=== PATIENT | female | born 1965 | race Caucasian/White ===

== ENCOUNTER 2024-01-28 10:36 | Inpatient (IN) | payer MEDICARE, SELFPAY ==
[2024-01-28] VITALS (10 sets, daily range): BP systolic 96–210; BP diastolic 57–136; PULSE 70–96; RESP 16–18; TEMP 33.3–37; O2SAT 91–98; BMI 20.2
--- NOTE | 2024-01-28 11:11 | XRR_ITS ---
PROCEDURE INFORMATION: Exam: XR Abdomen Exam date and time: 01/28/2024 11:51 AM Age: 58 years old Clinical indication: Constipation; Abdominal pain; Periumbilical; Additional info: Periumbilical pain, constipation TECHNIQUE: Imaging protocol: Radiologic exam of the abdomen. Views: Frontal supine view of the abdomen. 1 View. COMPARISON: CR XR chest 1V [id number] 10/15/2018 12:44 AM FINDINGS: Gastrointestinal tract: There are multiple loops of mildly distended small bowel in the mid abdomen. A large amount of stool is noted throughout the colon but the colon is not distended. No free air. Bones/joints: Unremarkable. XR/XR abdomen 1V* [id number] IMPRESSION: 1. Small bowel distension of uncertain etiology. You may wish to obtain a CT for further evaluation. 2. Constipation
--- NOTE | 2024-01-28 11:30 | W.ED.ABDPA2 ---
HPI - Abdominal Pain General: Chief Complaint: Abdominal Pain Stated Complaint: abd pain, N/V Time Seen by Provider: 01/28/24 11:10 History of Present Illness: Presents to the ER with complaints of abdominal pain. This morning patient says she has not had a bowel movement a couple weeks and started vomiting this morning. Patient says she the pain rates a 9 out of 10 and is primarily periumbilical to the right lower quadrant. Patient says she had problems with constipation her whole life. Patient denies any urinary symptoms. No fever or chills. Patient says she has had an appendectomy and a cholecystectomy. Review of Systems General: Reports: 10 or more systems reviewed and unremarkable except in HPI and below Physical Exam Const: COMMON NORMALS: no acute distress, average body habitus, patient oriented x3, no limitations, healthy appearing, alert and well nourished HENMT: COMMON NORMALS: normocephalic, atraumatic, hearing grossly normal bilaterally, external ears normal, Normal external nose present, moist oral mucous membranes and oropharynx normal HEAD & SCALP: normocephalic and atraumatic NOSE: Normal external nose present EXTERNAL EAR: Yes external ears normal Neck/C-Spine: COMMON NORMALS: no JVD Resp: COMMON NORMALS: normal respiratory effort, No retractions, No use of accessory muscles and clear to auscultation bilaterally AUSCULTATION: clear to auscultation bilaterally Cardio: COMMON NORMALS: no JVD, regular rate, regular rhythm, S1 normal heart sound present, S2 normal heart sound present, No gallops present (Cardio), No clicks present (Cardio), No murmurs present (Cardio) and No rub (Cardio) RATE: regular rate RHYTHM: regular rhythm HEART SOUNDS: S1 normal heart sound present and S2 normal heart sound present GI: COMMON NORMALS: Normal to inspection, nondistended, normoactive bowel sounds present, Soft to palpation, No hepatosplenomegaly present, no masses and no bruits; negative for non-tender (Tender to palpate periumbilical/right lower quadrant) PALPATION: Yes Soft to palpation and Yes No hepatosplenomegaly present Neuro: COMMON NORMALS: patient oriented x3 SENSORIUM/ORIENTATION: Yes alert Course Vital Signs: Vital signs: Vital Signs Temperature 92 F L 01/28/24 10:40 Pulse Rate 84 01/28/24 15:00 Respiratory Rate 16 01/28/24 15:00 Blood Pressure 159/101 01/28/24 15:00 Pulse Oximetry 98 01/28/24 15:00 Oxygen Delivery Me thod Nasal Cannula 01/28/24 15:00 Oxygen Flow Rate 2.5 01/28/24 15:00 MDM - Abdominal Pain Medical Decision Making CT of the abdomen was obtained which showed high-grade small bowel obstruction with transition point in right lower quadrant, Dr. Acosta was consulted who agreed to consult the patient inpatient, he wanted nasogastric tube, normal saline at 150 cc an hour and official consult,. Dr Tracy was consulted who agreed to place the patient inpatient for further evaluation and treatment. Differential Diagnosis Likely abdominal pain and constipation; Unlikely acute appendicitis, calculus of kidney, diverticulitis, endometriosis, gastroenteritis, pancreatitis or small bowel obstruction Medical Records I reviewed the patient's medical records. Lab Data I reviewed the patient's lab results. 01/28/24 12:20 01/28/24 12:20 Labs/Radiology: Radiology Impressions Abdomen X-Ray 01/28/24 11:11 IMPRESSION: 1. Small bowel distension of uncertain etiology. You may wish to obtain a CT for further evaluation. 2. Constipation Laboratory Results WBC 11.64 10^3/uL (3.29-11.43) H 01/28/24 12:20 RBC 5.04 10^6/uL (3.85-5.65) 01/28/24 12:20 Hgb 14.50 g/dL (11.27-16.99) 01/28/24 12:20 Hct 44.9 % (36-47) 01/28/24 12:20 MCV 89.1 fl (85-98) 01/28/24 12:20 MCH 28.8 pg (27-33) 01/28/24 12:20 MCHC 32.3 g/dL (30-55) 01/28/24 12:20 RDW 12.3 % (12.1-15.1) 01/28/24 12:20 Plt Count 201 10^3/cmm (157-399) 01/28/24 12:20 MPV 12.0 fL (7.4-10.4) H 01/28/24 12:20 Neut % (Auto) 88.7 % 01/28/24 12:20 Lymph % (Auto) 7.9 % 01/28/24 12:20 [place] % (Auto) 2.6 % 01/28/24 12:20 Eos % (Auto) 0.3 % 01/28/24 12:20 Baso % (Auto) 0.2 % 01/28/24 12:20 Neut # (Auto) 10.32 10^3/uL (1.8-7.7) H 01/28/24 12:20 Lymph # (Auto) 0.9 10^3/uL (0.8-4.8) 01/28/24 12:20 [place] # (Auto) 0.3 10^3/uL (0.2-0.9) 01/28/24 12:20 Eos # (Auto) 0.0 10^3/uL (0.0-0.8) 01/28/24 12:20 Baso # (Auto) 0.0 10^3/uL (0.0-0.1) 01/28/24 12:20 Nucleated RBC % (auto) 0 % 01/28/24 12:20 Nucleated RBCs # 0.0 /100WBC 01/28/24 12:20 Sodium 137 mmol/L (136-145) 01/28/24 12:20 Potassium 3.8 mmol/L (3.5-5.1) 01/28/24 12:20 Chloride 94 mmol/L (98-107) L 01/28/24 12:20 Carbon Dioxide 32 mmol/L (22-29) H 01/28/24 12:20 Anion Gap 14.8 (5-19) 01/28/24 12:20 BUN 9 mg/dL (6-20) 01/28/24 12:20 Creatinine 0.8 mg/dL (0.5-0.9) 01/28/24 12:20 GFR Calculation 73.7 mL/min (90-130) L 01/28/24 12:20 Glucose 140 mg/dL (65-115) H 01/28/24 12:20 Calculated Osmolality 285 mOsm/kg (285-295) 01/28/24 12:20 Calcium 9.4 mg/dL (8.5-10.5) 01/28/24 12:20 Total Bilirubin 0.4 mg/dL (0.15-1.2) 01/28/24 12:20 AST 82 U/L (0-32) H 01/28/24 12:20 ALT 57 U/L (0-33) H 01/28/24 12:20 Alkaline Phosphatase 181 U/L (35-105) H 01/28/24 12:20 Total Protein 7.5 g/dL (6.6-8.7) 01/28/24 12:20 Albumin 4.3 g/dL (3.5-5.2) 01/28/24 12:20 Globulin 3.2 g/dL (1.3-4.6) 01/28/24 12:20 Lipase 15 U/L (13-60) 01/28/24 12:20 Urine Color Yellow (Yellow) 01/28/24 11:50 Urine Appearance Clear (CLEAR) 01/28/24 11:50 Urine pH 8 (5-7) H 01/28/24 11:50 Ur Specific [place] 1.015 (1.005-1.030) 01/28/24 11:50 Urine Protein 2+ (Negative) H 01/28/24 11:50 Urine Glucose (UA) Norm (Normal) 01/28/24 11:50 Urine Ketones Negative (Negative) 01/28/24 11:50 Urine Blood Neg (Negative) 01/28/24 11:50 Urine Nitrate Negative (Negative) 01/28/24 11:50 Urine Bilirubin Neg (Negative) 01/28/24 11:50 Prot Sulfosalicylic Acd Positive (Negative) 01/28/24 11:50 Urine Urobilinogen Norm mg/dL (Negative) 01/28/24 11:50 Ur Leukocyte Esterase Negative (Negative) 01/28/24 11:50 Urine RBC 0-4 /hpf (0-2) H 01/28/24 11:50 Urine WBC 0-4 /hpf (0-5) H 01/28/24 11:50 Ur Squamous Epith Cells 0-4 /hpf (0-5) H 01/28/24 11:50 Amorphous Sediment Not Reportable 01/28/24 11:50 Urine Bacteria Trace /hpf (NONE) 01/28/24 11:50 All radiology interpretation(s) finalized by discharge Discharge Plan Discharge Patient Disposition: Admitted As Inpatient Clinical Impression: Small bowel obstruction Condition: Stable Coding Level of Care Code ED Silk Conditioner for [facility]
[2024-01-28] MEDS: ketorolac 60 mg/2 mL INJ IM (12:00)
[2024-01-28] MEDS: ondansetron 2 mg/ML SDV 2 mL 4 MG IM (12:00)
[2024-01-28 12:15] LABS: Specific Gravity, Urine 1.015 (1.005-1.030); Urine Appearance Clear (CLEAR); Urine Color Yellow (Yellow); pH Urine 8 (5-7)
[2024-01-28 12:16] LABS: Add Urine Microscopic? YES; Bilirubin Urine Neg (Negative); Blood Urine Neg (Negative); Glucose Urine UA Norm (Normal); Ketones Urine Negative (Negative); Leukocyte Esterase Urine Negative (Negative); Nitrate Urine Negative (Negative); Protein Urine 2+ (Negative); Sulfosalicylic Acid Urine Positive (Negative); Urobilinogen Urine Norm (Negative)
--- NOTE | 2024-01-28 12:19 | CT_ITS ---
WS: [id number] CT ABDOMEN AND PELVIS WITH CONTRAST HISTORY: abd pain constipation abnormal xr TECHNIQUE: Imaging performed of the abdomen and pelvis with IV contrast. Single phase imaging of the abdomen. Coronal and sagittal reformats are submitted. All CT scans at [facility] use at [address] one of these dose optimization techniques: automated exposure control; mA and/or kV adjustment per patient size (includes targeted exams where dose is matched to clinical indication); or iterative re construction. IV CONTRAST: Omnipaque 350; 100 mL IV. Oral contrast: No DLP: 404.77 mGy.cm COMPARISON: None available. Lower thorax: Benign granuloma RIGHT lung base. Heart is normal size. No hiatal hernia. Liver/biliary system: Normal size with no intrahepatic dilatation. Gallbladder: Status post cholecystectomy. Pancreas: Diffuse pancreatic atrophy. Spleen: Normal size spleen. No mass or infarct. Adrenal glands: Normal. Right kidney: Normal. Left kidney: Normal. Aorta: Normal. Lymphadenopathy: None. Free fluid: Free fluid in the pelvis. GI tract: Stomach is markedly distended with fluid and air. High-grade small bowel obstruction with l oops measuring greater than 3 cm in diameter. There is a changing caliber in the RIGHT pelvis with mi ld luminal narrowing. Colon remains moderately distended with fecal material. Abdominal wall: Unremarkable abdominal wall. No hernia. Pelvis: Free fluid. Slightly greater into the RIGHT adnexa. Bones: Degenerative disc disease in the lumbar spine. IMPRESSION: 1. High-grade small bowel obstruction. Transition point is probably in the RIGHT lower quadrant. Sto mach is also distended with fluid. 2. Free fluid in the pelvis greatest into the RIGHT adnexa. 3. Prior appendectomy. 4. Extensive atherosclerotic plaque within the aorta and iliac arteries, more than expected for a pa tient of this age. 5. Prior cholecystectomy.
[2024-01-28] MEDS: cloNIDine 0.1 mg Tablet 0.200000000000000011 MG PO (12:24)
[2024-01-28 12:36] LABS: Basophils % 0.2 %; Eosinophils % 0.3 %; Hematocrit 44.9 % (36-47); Lymphocytes # 0.9 10^3/uL (0.8-4.8); Lymphocytes % 7.9 %; Mean Corpuscular HGB Conc 32.3 g/dL (30-55); Mean Corpuscular Hemoglobin 28.8 pg (27-33); Mean Corpuscular Volume 89.1 fl (85-98); Monocytes # 0.3 10^3/uL (0.2-0.9); Monocytes % 2.6 %; Neutrophils # 10.32 10^3/uL (1.8-7.7); Neutrophils % 88.7 %; Nucleated Red Blood Cells % 0 %; Platelet Count 201 10^3/cmm (157-399); Red Blood Count 5.04 10^6/uL (3.85-5.65); Red Cell Distribution Width 12.3 % (12.1-15.1); White Blood Count 11.64 10^3/uL (3.29-11.43)
[2024-01-28] MEDS: iohexol 350 mg/mL 500 mL Btl (per mL) IV (12:40)
[2024-01-28 12:41] LABS: Add Urine Culture? No; Bacteria Urine TRACE /hpf; RBC Urine 0-4 /hpf (0-2); Squamous Epithelial Cell Urine 0-4 /hpf (0-5); WBC Urine 0-4 /hpf (0-5)
[2024-01-28 13:00] LABS: Alanine Aminotransferase 57 U/L (0-33); Albumin Level 4.3 g/dL (3.5-5.2); Alkaline Phosphatase 181 U/L (35-105); Anion Gap 14.8 (5-19); Aspartate Amino Transferase 82 U/L (0-32); Blood Urea Nitrogen 9 mg/dL (6-20); Calcium 9.4 mg/dL (8.5-10.5); Carbon Dioxide 32 mmol/L (22-29); Chloride 94 mmol/L (98-107); Globulin 3.2 g/dL (1.3-4.6); Glomerular Filtration Rate 73.7 mL/min (90-130); Glucose 140 mg/dL (65-115); Lipase 15 U/L (13-60); Osmolality Calculated 285 mOsm/kg (285-295); Potassium 3.8 mmol/L (3.5-5.1); Sodium 137 mmol/L (136-145); Total Bilirubin 0.4 mg/dL (0.15-1.2); Total Protein 7.5 g/dL (6.6-8.7)
[2024-01-28 15:52] LABS: Lactic Sepsis W/Reflex 1.2 mmol/L (0.5-2.2)
--- NOTE | 2024-01-28 16:36 | P.HP_ITS ---
Providers/Chief Complaint 2 Chief Complaint: abd pain, N/V History of Present Illness 58-year-old lady with history of recurrent/chronic constipation, history of appendectomy, additionally chronic neck pain for which she is on opioid, has not had a bowel movement in several weeks, although she does have recurrent constipation, has been taking senna at home which had worked for her in the past. However, she started having nausea and vomiting, unable to keep down any oral intake or her medications today, as well as abdominal pain 07/27. Received pain medication in ER, CT abdomen pelvis with high-grade small bowel obstruction transition point probably in the right lower quadrant. Surgery was contacted in ER and requested placement of NG tube for decompression. Review of Systems 2 Const: Denies: fever(s), chills, body aches or malaise ENMT: Denies: throat pain Card: Denies: chest pain, edema, pre-syncope or dyspnea on exertion Resp: Denies: dyspnea, productive cough, change in phlegm color or hemoptysis GI: Reports: abdominal pain, nausea and vomiting; Denies: diarrhea, constipation, hematochezia or melena : Denies: flank pain, urinary frequency or hematuria Musc: Denies: back pain, joint swelling or joint redness Skin/Breast: Denies: rash or new lesions Neuro: Denies: headache(s), dizziness or confusion Medications/Allergies Home Medications Medication Instructions Recorded Confirmed Last Taken Type albuterol sulfate 90 mcg/actuation 2 puff inhalation QID PRN 01/28/24 01/28/24 Unknown History aerosol inhaler Shortness Of Breath Or Wheezing aspirin 81 mg tablet,delayed 81 mg PO DAILY 01/28/24 01/28/24 01/27/24 History release budesonide 160 mcg-glycopyr 9 2 inh inhalation BID 01/28/24 01/28/24 01/27/24 History mcg-formot 4.8 mcg/actuation HFA inhaler (Breztri Aerosphere) bupropion HCl 150 mg tablet,12 hr 150 mg PO BID 01/28/24 01/28/24 01/27/24 History sustained-release carvedilol 6.25 mg tablet 6.25 mg PO BID 01/28/24 01/28/24 01/27/24 History cholecalciferol (vitamin D3) 25 25 mcg PO DAILY 01/28/24 01/28/24 01/27/24 History mcg (1,000 unit) tablet (Vitamin D3) citalopram 40 mg tablet 40 mg PO DAILY 01/28/24 01/28/24 01/27/24 History cyclobenzaprine 10 mg tablet 10 mg PO TID 01/28/24 01/28/24 01/27/24 History gabapentin 600 mg tablet 600 mg PO TID 01/28/24 01/28/24 01/27/24 History montelukast 10 mg tablet 10 mg PO QPM 01/28/24 01/28/24 01/27/24 History uxknilca-ytu-eclcr ac 400 1 tab PO DAILY 01/28/24 01/28/24 01/27/24 History mcg-calcium carb 500 mg-vit K1 20 mcg tablet (Women's 50 Plus Multivitamin) nitroglycerin 0.4 mg sublingual 0.4 mg sublingual Q5M PRN Chest 01/28/24 01/28/24 Unknown History tablet (Nitrostat) Pain omeprazole 40 mg capsule,delayed 40 mg PO DAILY 01/28/24 01/28/24 01/27/24 History release oxycodone 10 mg tablet 10 mg PO Q6H PRN Pain 01/28/24 01/28/24 01/27/24 History sennosides 8.6 mg tablet (Senna 8.6 mg PO DAILY PRN Constipation 01/28/24 01/28/24 Unknown History Lax) zolpidem 5 mg tablet 5 mg PO BEDTIME 01/28/24 01/28/24 01/27/24 History Allergies Allergy/AdvReac Type Severity Reaction Status Date / Time morphine Allergy ALGY-Difficulty Verified 01/28/24 10:44 Breathing clopidogrel [From Plavix] AdvReac Intermediate ADR-Gastrointestinal Verified 01/28/24 16:38 Upset doxycycline AdvReac ADR-Vomitin Verified 01/28/24 10:44 g sulfamethoxazole AdvReac ADR-Vomitin Verified 01/28/24 10:44 [From Bactrim] g trimethoprim [From Bactrim] AdvReac ADR-Vomitin Verified 01/28/24 10:44 g PFSH Acute 2 PFSH: Medical History (Updated 01/28/24 @ 16:36 by Archie Tracy MD) Paroxysmal A-fib COPD (chronic obstructive pulmonary disease) Bronchitis CAD (coronary artery disease) Surgical History (Updated 01/28/24 @ 16:36 by Archie Tracy MD) History of coronary artery stent placement H/O hand surgery H/O shoulder surgery H/O left knee surgery Hx of appendectomy Social History (Updated 01/28/24 @ 17:01 by Archie Tracy MD) Smoking and tobacco/nicotine status: former use of tobacco/nicotine Vitals/I&O/Wt Last Vital Signs Temp 92 F L 01/28/24 10:40 Pulse 84 01/28/24 15:00 Resp 16 01/28/24 15:00 BP 159/101 01/28/24 15:00 Pulse Ox 98 01/28/24 15:00 O2 Del Method Nasal Cannula 01/28/24 15:00 O2 Flow Rate 2.5 01/28/24 15:00 Weight last 48 hrs Weight 65.771 kg Physical Exam 2 Const: COMMON NORMALS: patient oriented x3 and alert GENERAL APPEARANCE: c ooperative ORIENTATION/CONSCIOUSNESS: Yes awake HENMT: COMMON NORMALS: oropharynx normal Neck/C-Spine: COMMON NORMALS: no JVD Resp: COMMON NORMALS: normal respiratory effort and clear to auscultation bilaterally AUSCULTATION: clear to auscultation bilaterally Cardio: COMMON NORMALS: no JVD, regular rhythm, S1 normal heart sound present, S2 normal heart sound present and No murmurs present (Cardio) RHYTHM: regular rhythm HEART SOUNDS: S1 normal heart sound present and S2 normal heart sound present GI: COMMON NORMALS: Soft to palpation INSPECTION: Yes abdominal distension PALPATION: Yes Soft to palpation OTHER: Mildly tender Extremity: COMMON NORMALS: no joint enlargement and no pedal edema Neuro: COMMON NORMALS: patient oriented x3 and moves all extremities S ENSORIUM/ORIENTATION: Yes alert Skin: COMMON NORMALS: no rashes or lesions noted GENERAL SKIN EXAM: no rashes or lesions noted Data 01/28/24 12:20 01/28/24 12:20 A&P Assessment and plan (1) Small bowel obstruction: Reviewed vitals, CBC, CMP, lipase, lactic acid, UA, CT abdomen pelvis, ER note, discussed with ER provider. NGT has been requested as per surgery. Agree with NGT decompression, bowel rest. IV hydration. Surgery consultation for follow- up, consideration of treatment options. Morphine IV as needed for pain, and nausea control as needed. Ambulate. Plan Transaminitis: No specific right upper quadrant tenderness, unremarkable liver and biliary system on CT, status postcholecystectomy. Reassess liver function. Chronic hypoxia: COPD, chronically on 2 L nasal cannula oxygen. DuoNebs. CAD: Prior stenting, will switch aspirin to rectal for now. Did not tolerate Plavix in the past with gastritis, PUD, nausea and vomiting. COPD: Not in exacerbation Hypertension: Reports blood pressure recently has been elevated. Paroxysmal episode of atrial fibrillation: She reports 1 episode of atrial fibrillation around the time of CAD treatment, reports without recurrence. Takes carvedilol at home. Not on anticoagulation. Discussed with her to discuss with primary provider regarding consideration of anticoagulation for stroke risk prevention with paroxysmal A-fib. Attestations 2 Medical Necessity Statement*: Admission of over 2 midnights anticipated for assessment and management of small bowel obstruction. Diagnoses Small bowel obstruction K56.609
[2024-01-28] MEDS: sodium chloride 0.9% 1,000 ML 150 ML IV (16:38)
--- NOTE | 2024-01-28 16:46 | PC.NURSE ---
this nurse and Miya Bermudez RN attempted to insert NG tube in patient. patient stopped us from inserting the tube and refused the NG tube. pt said she would rather go home and deal with the gut pain than get the NG tube inserted.
[2024-01-28] MEDS: heparin 5,000 unit/mL INJ 1 mL 5000 UNIT SUBCUT (18:13)
[2024-01-28] MEDS: pantoprazole 40 mg SDV IVP (18:13)
[2024-01-28] MEDS: hyDRALAzine 20 mg/mL INJ 1 mL 5 MG IVP (19:15)
[2024-01-28] MEDS: HYDROmorphone 1 mg/mL INJ 1 mL IVP (19:16)
[2024-01-28] MEDS: ipratropium-albuterol 3 mL Neb INHALATION (19:45)
--- NOTE | 2024-01-28 23:35 | XRR_ITS ---
PROCEDURE INFORMATION: Exam: XR Chest Exam date and time: 01/29/2024 12:09 AM Age: 58 years old Clinical indication: Device placement; Ng tube; Additional info: Ng tube placement TECHNIQUE: Imaging protocol: Radiologic exam of the chest. Views: 1 view. COMPARISON: 1. CR XR chest 1V [id number] 10/15/2018 12:44 AM and 10/15/2018, CT abdomen pelvis 01/28/2024 2. 2. FINDINGS: Tubes, catheters and devices: NG tube projects over midline with side port projecting over the left upper quadrant and tip terminating over the midline of the abdomen. Lungs: No focal consolidation. Re-demonstration of 5 mm calcified granuloma projecting over the left hemidiaphragm, unchanged from 2018. New 4 mm nodular density projects over the left lateral lung base, likely corresponding to 4 mm nodule or lymph node associated with the right minor fissure on the comparison CT. Pleural spaces: No pleural effusion or pneumothorax. Heart/Mediastinum: Normal in size Bones/joints: Left rotator cuff repair Soft tissues: Single portable AP upright radiograph of the chest and upper abdomen shows no significant patient rotation. Intraperitoneal space: No definite free air. XR/XR chest 1V portable [id number] IMPRESSION: 1. Tip of NG tube projects over abdominal midline in the region of the distal stomach/gastro duodenal junction. 2. 4 mm nodule or lymph node at the left lateral lung base, new from 2018; follow-up is recommended based on patient's clinical risk level. CT There is free intraperitoneal air. Impression new. Intraperitoneal free air. Fleischner Society Guidelines for Incidental Pulmonary Nodules Detected on CT: For patients at low risk (minimal or absent history of smoking and of other known risk factors), no routine follow-up is indicated. For patients at high risk (history of smoking or of other known risk factors), consider optional CT Chest at 12 months. (Reference: Bernardo) REFERENCES: Bernardo Rabago et al. Guidelines for Management of Incidental Pulmonary Nodules Detected on CT Images: From the Fleischner Society 2017. Radiology. 2017;284(1):228-243.
[2024-01-29] VITALS (15 sets, daily range): BP systolic 85–193; BP diastolic 45–103; PULSE 66–98; RESP 16–20; TEMP 36.4–37.1; O2SAT 90–100; BMI 20.5
[2024-01-29] MEDS: sodium chloride 0.9% 500 ML 999 ML IV (00:47)
[2024-01-29] MEDS: sodium chloride 0.9% 1,000 ML 150 ML IV ×2 (03:09→09:12)
[2024-01-29] MEDS: pantoprazole 40 mg SDV IVP ×2 (04:58→17:58)
[2024-01-29 05:07] LABS: Basophils % 0.5 %; Eosinophils # 0.1 10^3/uL (0.0-0.8); Eosinophils % 2.1 %; Hematocrit 35.8 % (36-47); Lymphocytes # 1.6 10^3/uL (0.8-4.8); Lymphocytes % 27.7 %; Mean Corpuscular HGB Conc 32.1 g/dL (30-55); Mean Corpuscular Hemoglobin 29.3 pg (27-33); Mean Corpuscular Volume 91.3 fl (85-98); Mean Platelet Volume 12.2 fL (7.4-10.4); Monocytes # 0.4 10^3/uL (0.2-0.9); Monocytes % 6.9 %; Neutrophils # 3.61 10^3/uL (1.8-7.7); Neutrophils % 62.5 %; Nucleated Red Blood Cells % 0 %; Platelet Count 131 10^3/cmm (157-399); Red Blood Count 3.92 10^6/uL (3.85-5.65); Red Cell Distribution Width 12.6 % (12.1-15.1); White Blood Count 5.78 10^3/uL (3.29-11.43)
[2024-01-29] MEDS: heparin 5,000 unit/mL INJ 1 mL 5000 UNIT SUBCUT ×2 (05:25→18:15)
[2024-01-29 05:31] LABS: Alanine Aminotransferase 135 U/L (0-33); Albumin Level 3.2 g/dL (3.5-5.2); Alkaline Phosphatase 183 U/L (35-105); Anion Gap 11.9 (5-19); Aspartate Amino Transferase 261 U/L (0-32); Blood Urea Nitrogen 13 mg/dL (6-20); Calcium 7.9 mg/dL (8.5-10.5); Carbon Dioxide 29 mmol/L (22-29); Chloride 104 mmol/L (98-107); Creatinine Clr Calc Pharmacy 60.5373; Globulin 2.5 g/dL (1.3-4.6); Glucose 92 mg/dL (65-115); Magnesium 2.1 mg/dL (1.7-2.3); Osmolality Calculated 292 mOsm/kg (285-295); Potassium 3.9 mmol/L (3.5-5.1); Sodium 141 mmol/L (136-145); Total Bilirubin 0.5 mg/dL (0.15-1.2); Total Protein 5.7 g/dL (6.6-8.7)
[2024-01-29 05:50] LABS: Slide Review Slide Review Perform
--- NOTE | 2024-01-29 08:15 | P.CONIM_ITS ---
Providers/Reason For Consult 2 Consulting Physician/Specialty*: Dr. Abhishek Acosta, DO/General surgery Reason for Consult*: Partial small bowel obstruction Attending Physician: Archie Tracy History of Present Illness History of Present Illness Rosario Watkins is a 58 year old female presents to the hospital with 1 day history of abdominal pain nausea and emesis. Her abdominal pain is diffuse but mostly in the periumbilical region and right lower quadrant. Patient makes pain worse. Nothing makes pain better. Pain does not radiate. She denies any hematemesis. Prior to presentation to the hospital and she reports that she had not had a bowel movement in 2 weeks and always has a problem with constipation. She takes 40 mg of oxycodone a day at home. Today she reports that she is passing some flatus and had a bowel movement last night. CT abdomen pelvis shows a high-grade small bowel obstruction in the right lower quadrant. Review of Systems 2 General: Reports: 10 or more systems reviewed and unremarkable except in HPI and below Medications/Allergies Home Medications Medication Instructions Recorded Confirmed Last Taken Type albuterol sulfate 90 mcg/actuation 2 puff inhalation QID PRN 01/28/24 01/28/24 Unknown History aerosol inhaler Shortness Of Breath Or Wheezing aspirin 81 mg tablet,delayed 81 mg PO DAILY 01/28/24 01/28/24 01/27/24 History release budesonide 160 mcg-glycopyr 9 2 inh inhalation BID 01/28/24 01/28/24 01/27/24 History mcg-formot 4.8 mcg/actuation HFA inhaler (Breztri Aerosphere) bupropion HCl 150 mg tablet,12 hr 150 mg PO BID 01/28/24 01/28/24 01/27/24 History sustained-release carvedilol 6.25 mg tablet 6.25 mg PO BID 01/28/24 01/28/24 01/27/24 History cholecalciferol (vitamin D3) 25 25 mcg PO DAILY 01/28/24 01/28/24 01/27/24 History mcg (1,000 unit) tablet (Vitamin D3) citalopram 40 mg tablet 40 mg PO DAILY 01/28/24 01/28/24 01/27/24 History cyclobenzaprine 10 mg tablet 10 mg PO TID 01/28/24 01/28/24 01/27/24 History gabapentin 600 mg tablet 600 mg PO TID 01/28/24 01/28/24 01/27/24 History montelukast 10 mg tablet 10 mg PO QPM 01/28/24 01/28/24 01/27/24 History wdysjfnn-akl-ejaht ac 400 1 tab PO DAILY 01/28/24 01/28/24 01/27/24 History mcg-calcium carb 500 mg-vit K1 20 mcg tablet (Women's 50 Plus Multivitamin) nitroglycerin 0.4 mg sublingual 0.4 mg sublingual Q5M PRN Chest 01/28/24 01/28/24 Unknown History tablet (Nitrostat) Pain omeprazole 40 mg capsule,delayed 40 mg PO DAILY 01/28/24 01/28/24 01/27/24 History release oxycodone 10 mg tablet 10 mg PO Q6H PRN Pain 01/28/24 01/28/24 01/27/24 History sennosides 8.6 mg tablet (Senna 8.6 mg PO DAILY PRN Constipation 01/28/24 01/28/24 Unknown History Lax) zolpidem 5 mg tablet 5 mg PO BEDTIME 01/28/24 01/28/24 01/27/24 History Allergies Allergy/AdvReac Type Severity Reaction Status Date / Time morphine Allergy ALGY-Difficulty Verified 01/28/24 10:44 Breathing clopidogrel [From Plavix] AdvReac Intermediate ADR-Gastrointestinal Verified 01/28/24 16:38 Upset doxycycline AdvReac ADR-Vomitin Verified 01/28/24 10:44 g sulfamethoxazole AdvReac ADR-Vomitin Verified 01/28/24 10:44 [From Bactrim] g trimethoprim [From Bactrim] AdvReac ADR-Vomitin Verified 01/28/24 10:44 g Current Medications Generic Name Dose Route Start Last Admin Trade Name Freq PRN Reason Stop Dose Admin Albuterol/Ipratropium 3 ml 01/28/24 20:00 01/29/24 14:16 Ipratropium-Albuterol 3 Ml Neb INHALATION 3 ml Q6H.RESP MARVA Administration Aspirin 300 mg 01/29/24 09:00 01/29/24 09:12 Aspirin 300 Mg Supp MA 300 mg DAILY MARVA Administration Heparin Sodium (Porcine) 5,000 unit 01/28/24 17:21 01/29/24 05:25 Heparin 5,000 Unit/Ml Inj 1 Ml SUBCUT 5,000 unit Q12H MARVA Administration Sodium Chloride 1,000 mls @ 150 mls/hr 01/28/24 15:15 01/29/24 15:55 Sodium Chloride 0.9% IV Infused .Q6H40M MARVA Infusion Ketorolac Tromethamine 30 mg 01/29/24 08:30 01/29/24 14:59 Ketorolac 30 Mg/Ml Inj IVP 02/03/24 08:29 30 mg Q6H MARVA Administration Pantoprazole Sodium 40 mg 01/28/24 17:21 01/29/24 04:58 Pantoprazole 40 Mg Sdv IVP 40 mg Q12H MARVA Administration PFSH Acute 2 PFSH: Medical History Paroxysmal A-fib COPD (chronic obstructive pulmonary disease) Bronchitis CAD (coronary artery disease) Surgical History History of coronary artery stent placement H/O hand surgery H/O shoulder surgery H/O left knee surgery Hx of appendectomy Social History Smoking and tobacco/nicotine status: former use of tobacco/nicotine Vitals/I&O/Wt Last Vital Signs Temp 98.1 F 01/29/24 12:00 Pulse 89 01/29/24 14:23 Resp 19 H 01/29/24 14:16 BP 168/95 01/29/24 12:00 Pulse Ox 90 01/29/24 14:16 O2 Del Method Room Air 01/29/24 14:16 O2 Flow Rate 2 01/29/24 09:18 01/29/24 01/29/24 01/29/24 06:59 14:59 22:59 Intake Total 1282.5 / 1500.0 907.5 / 907.5 1000 / 1907.5 Output Total 200 / 200 300 / 300 Balance 1082.5 / 1300.0 607.5 / 607.5 1000 / 1607.5 Weight last 48 hrs Weight 146 lb 12.8 oz Weight 145 lb Weight 145 lb Physical Exam 2 Narrative: General : Patient is well developed , no acute distress, oriented x3 Head : Normal cephalic, a-traumatic. Ears : Pinnae and external canal are normal. Hearing is normal. Eyes : PERRLA, Sclera and injection are normal. No conjunctival discharge. Nose : Mucous membranes are without erythema. Throat : buccal mucosa is normal, gums are without significant recession or hypertrophy. Lungs : Equal chest rise bilaterally, no use of accessory muscles, trachea is midline. Cor : Rate and rhythm are normal. Abdomen : Soft, distended, mild diffuse tenderness no g/r/m Extremities : No edema, no cyanosis or clubbing, dorsalis pedis pulses are present bilaterally, non-tender to palpation of calves. Upper extremities are normal bilaterally. Back : non-tender to palpation, no CVA tenderness. Neuro : CN II - XII intact, Upper and lower extremities have equal and full strength Data 01/29/24 04:35 01/29/24 04:35 A&P Assessment and plan (1) Partial small bowel obstruction: (2) Therapeutic opioid-induced constipation (OIC): Plan Relistor Normal saline at 150 cc/h NPO/NGT to LIWS Conservative management for now. If her symptoms do not resolve within the next few days, we will have to consider diagnostic laparoscopy versus exploratory laparotomy. Medical management per hospitalist Coding Level of Care Code 21411 Diagnoses Partial small bowel obstruction K56.600 Therapeutic opioid-induced constipation (OIC) K59.03; T40.2X5A
[2024-01-29] MEDS: ketorolac 30 mg/mL INJ IVP ×3 (09:07→21:34)
[2024-01-29] MEDS: methylnaltrexone 12 /0.6 mL INJ 12 MG SUBCUT (09:11)
[2024-01-29] MEDS: aspirin 300 mg Supp PR (09:12)
[2024-01-29] MEDS: ipratropium-albuterol 3 mL Neb INHALATION ×3 (09:18→20:41)
[2024-01-29] MEDS: HYDROmorphone 1 mg/mL INJ 1 mL 0.5 MG IVP (17:59)
--- NOTE | 2024-01-29 21:21 | P.PN_ITS ---
Subjective 2 Subjective: Requests for opiate pain medication, states that she is currently on opiate, discussed with her concern regarding opiate adverse effects, bowel hypomotility, also in setting of bowel obstruction. Encouraged ambulation. She states they have discussed with surgery regarding conservative management for now, NGT with LIS, bowel rest, with reassessment for consideration of surgical intervention. Vitals/I&O/Wt Last Vital Signs Temp 97.6 F 01/29/24 16:00 Pulse 98 01/29/24 20:44 Resp 18 01/29/24 20:44 BP 180/60 01/29/24 20:00 Pulse Ox 94 01/29/24 20:44 O2 Del Method Nasal Cannula 01/29/24 20:44 O2 Flow Rate 2 01/29/24 20:44 01/29/24 01/29/24 01/29/24 06:59 14:59 22:59 Intake Total 1282.5 / 1500.0 907.5 / 907.5 1000 / 1907.5 Output Total 200 / 200 300 / 300 Balance 1082.5 / 1300.0 607.5 / 607.5 1000 / 1607.5 Weight last 48 hrs Weight 66.587 kg Weight 65.771 kg Weight 65.771 kg Physical Exam 2 Const: COMMON NORMALS: patient oriented x3 and alert GENERAL APPEARANCE: c ooperative ORIENTATION/CONSCIOUSNESS: Yes awake HENMT: COMMON NORMALS: oropharynx normal OTHER: NGT in place. Neck/C-Spine: COMMON NORMALS: no JVD Resp: COMMON NORMALS: normal respiratory effort and clear to auscultation bilaterally AUSCULTATION: clear to auscultation bilaterally Cardio: COMMON NORMALS: no JVD, regular rhythm, S1 normal heart sound present, S2 normal heart sound present and No murmurs present (Cardio) RHYTHM: regular rhythm HEART SOUNDS: S1 normal heart sound present and S2 normal heart sound present GI: COMMON NORMALS: Soft to palpation INSPECTION: Yes abdominal distension PALPATION: Yes Soft to palpation OTHER: Mildly tender Extremity: COMMON NORMALS: no joint enlargement and no pedal edema Neuro: COMMON NORMALS: patient oriented x3 and moves all extremities S ENSORIUM/ORIENTATION: Yes alert Skin: COMMON NORMALS: no rashes or lesions noted GENERAL SKIN EXAM: no rashes or lesions noted Data 01/29/24 04:35 01/29/24 04:35 A&P Assessment and plan (1) Small bowel obstruction: NGT has been placed. Continue to LIS. Bowel rest. Encouraged ambulation. Discussed with surgery, surgical note reviewed. She has been speaking with surgery regarding reassessment with consideration of need for surgical intervention in case of lack of improvement with conservative measures. Reviewed vitals, CBC, CMP. Discussed with insurance case manager. Later in the day noted hypotensive, held IV fluids for now. Reassess blood pressures. Continues NPO. Continue morphine IV as needed for pain, and nausea control as needed. Ambulate. Plan Transaminitis: Liver parameters with worsening today, AST up to 265, LT 135, roughly 2-1 pattern. Consideration of alcohol induced hepatitis, will check viral hepatitis panel. Hold acetaminophen. Reassess CMP. No specific right upper quadrant tenderness, unremarkable liver and biliary system on CT, status postcholecystectomy. Reassess liver function. Chronic hypoxia: COPD, chronically on 2 L nasal cannula oxygen. DuoNebs. CAD: Prior stenting, will switch aspirin to rectal for now. Did not tolerate Plavix in the past with gastritis, PUD, nausea and vomiting. COPD: Not in exacerbation Hypertension: Reports blood pressure recently has been elevated. Paroxysmal episode of atrial fibrillation: She reports 1 episode of atrial fibrillation around the time of CAD treatment, reports without recurrence. Takes carvedilol at home. Not on anticoagulation. Discussed with her to discuss with primary provider regarding consideration of anticoagulation for stroke risk prevention with paroxysmal A-fib. Attestations 2 Medical Necessity Statement*: Continue admission for assessment of management of unimproving SBO. Diagnoses Small bowel obstruction K56.609
[2024-01-29 22:53] LABS: Hepatitis A Antibody IgM Non-Reactive (Nonreactive); Hepatitis B Core IgM Non-Reactive (Nonreactive); Hepatitis B Surface Antigen Non-Reactive (Nonreactive); Hepatitis C Virus Antibody Non-Reactive (Nonreactive)
[2024-01-30] VITALS (13 sets, daily range): BP systolic 142–190; BP diastolic 80–104; PULSE 85–96; RESP 14–18; TEMP 36.5–36.6; O2SAT 96–99
[2024-01-30] MEDS: hyDRALAzine 20 mg/mL INJ 1 mL 10 MG IVP ×2 (00:43→04:00)
[2024-01-30] MEDS: HYDROmorphone 1 mg/mL INJ 1 mL 0.5 MG IVP ×3 (01:59→08:46)
[2024-01-30] MEDS: ketorolac 30 mg/mL INJ IVP ×3 (02:01→14:34)
[2024-01-30 04:49] LABS: Glucose Point of Care 95 mg/dL (70-110)
[2024-01-30] MEDS: pantoprazole 40 mg SDV IVP (04:51)
[2024-01-30] MEDS: heparin 5,000 unit/mL INJ 1 mL 5000 UNIT SUBCUT (05:35)
--- NOTE | 2024-01-30 07:49 | P.PN_ITS ---
Subjective 2 Subjective: Patient is still passing flatus and abdominal distention has significantly reduced. Still no bowel movement. Pain controlled Vitals/I&O/Wt Last Vital Signs Temp 97.6 F 01/29/24 16:00 Pulse 92 01/30/24 04:31 Resp 16 01/30/24 05:35 BP 158/86 01/30/24 05:33 Pulse Ox 96 01/30/24 04:31 O2 Del Method Nasal Cannula 01/29/24 20:44 O2 Flow Rate 2 01/29/24 20:44 01/29/24 01/30/24 01/30/24 22:59 06:59 14:59 Intake Total 1000 / 1907.5 240 / 2147.5 Output Total 1110 / 1410 1800 / 3210 125 / 125 Balance -110 / 497.5 -1560 / -1062.5 -125 / -125 Weight last 48 hrs Weight 140 lb Weight 146 lb 12.8 oz Weight 145 lb Weight 145 lb Physical Exam 2 Narrative: General: No acute distress, awake alert and oriented x 3 Abdomen: Soft, mildly distended, very mild diffuse tenderness, no guarding rebound or masses Data 01/29/24 04:35 01/29/24 04:35 A&P Assessment and plan (1) Partial small bowel obstruction: (2) Therapeutic opioid-induced constipation (OIC): Plan Relistor Normal saline at 150 cc/h NPO/NGT to LIWS Conservative management for now. If her symptoms do not resolve within the next few days, we will have to consider diagnostic laparoscopy versus exploratory laparotomy. Medical management per hospitalist Attestations 2 Medical Necessity Statement*: Per primary Coding Level of Care Code 66474 Diagnoses Partial small bowel obstruction K56.600 Therapeutic opioid-induced constipation (OIC) K59.03; T40.2X5A
[2024-01-30] MEDS: ipratropium-albuterol 3 mL Neb INHALATION (08:00)
[2024-01-30 08:07] LABS: Basophils % 0.5 %; Eosinophils % 0.3 %; Hematocrit 44.7 % (36-47); Lymphocytes # 1.4 10^3/uL (0.8-4.8); Lymphocytes % 16.1 %; Mean Corpuscular HGB Conc 33.1 g/dL (30-55); Mean Corpuscular Hemoglobin 28.8 pg (27-33); Mean Corpuscular Volume 87.1 fl (85-98); Mean Platelet Volume 11.6 fL (7.4-10.4); Monocytes # 0.4 10^3/uL (0.2-0.9); Neutrophils # 6.83 10^3/uL (1.8-7.7); Nucleated Red Blood Cells % 0 %; Platelet Count 181 10^3/cmm (157-399); Red Blood Count 5.13 10^6/uL (3.85-5.65); Red Cell Distribution Width 12.3 % (12.1-15.1); White Blood Count 8.76 10^3/uL (3.29-11.43)
[2024-01-30 08:32] LABS: Alanine Aminotransferase 115 U/L (0-33); Albumin Level 4.2 g/dL (3.5-5.2); Alkaline Phosphatase 212 U/L (35-105); Anion Gap 18.7 (5-19); Aspartate Amino Transferase 101 U/L (0-32); Blood Urea Nitrogen 13 mg/dL (6-20); Calcium 9.6 mg/dL (8.5-10.5); Carbon Dioxide 26 mmol/L (22-29); Chloride 96 mmol/L (98-107); Creatinine Clr Calc Pharmacy 93.8754; Globulin 3.3 g/dL (1.3-4.6); Glomerular Filtration Rate 85.9 mL/min (90-130); Glucose 84 mg/dL (65-115); Osmolality Calculated 283 mOsm/kg (285-295); Potassium 3.7 mmol/L (3.5-5.1); Sodium 137 mmol/L (136-145); Total Bilirubin 0.5 mg/dL (0.15-1.2); Total Protein 7.5 g/dL (6.6-8.7)
[2024-01-30] MEDS: aspirin 300 mg Supp PR (08:41)
[2024-01-30] MEDS: mineral oil 30 mL UDC NG-TUBE (13:05)
[2024-01-30] MEDS: glycerin adult supp 1 EACH PR (13:05)
[2024-01-30] MEDS: bisacodyl 10 mg Supp PR (13:05)
[2024-01-30] MEDS: mineral oil ENEMA 133 mL PR (13:05)
--- NOTE | 2024-01-30 21:13 | P.DS_ITS ---
Discharge Providers Date of Admission: 01/28/24 16:39 Date of Discharge: January 30, 2024 Attending Provider at Admission: Archie Tracy Attending Provider at Discharge: Archie Tracy Diagnoses at Discharge Discharge Diagnosis (1) Partial small bowel obstruction: Status: Acute (2) Therapeutic opioid-induced constipation (OIC): Status: Acute Reason for Visit Reason for Visit: abd pain, N/V Brief History: 58-year-old lady with history of recurre nt/chronic constipation, history of appendectomy, additionally chronic neck pain for which she is on opioid, has not had a bowel movement in several weeks, although she does have recurrent constipation, has been taking senna at home which had worked for her in the past. However, she started having nausea and vomiting, unable to keep down any oral intake or her medications today, as well as abdominal pain /. Received pain medication in ER, CT abdomen pelvis with high-grade small bowel obstruction transition point probably in the right lower quadrant. Surgery was contacted in ER and requested placement of NG tube for decompression. Hospital Course Hospital Course She was assessed by surgery, treated conservatively with NGT placement, decompression, bowel rest, IV hydration, analgesia and antiemetics. Understands contribution of opioids/risk of bowel hypomotility. Additionally noted some transaminitis which does appear to be chronic in nature, without right upper quadrant tenderness, unremarkable liver and biliary system on CT, status post cholecystectomy. With additional bowel regimen she did end up having a small and slightly larger bowel movement today. However, before she could be trialed with some oral intake and further reassessed she assertively requested removal of NGT otherwise she was going to pull it out herself and requested to discharge AMA. As per discussion she understands that there is a risk of still present obstruction despite having a bowel movement, or possibly other complications, at risk of potentially severe or life-threatening. She understood that she could change her mind and stay or return for reassessment/continued care. She understands to seek medical attention as soon as possible, states she will be returning to ER in case of any worsening, and states that she will be seeking a primary care provider, but will be returning back to [place] to do so as she will be leaving the area shortly. She will be further seeking reassessment of her coronary disease, as well as paroxysmal episode of atrial fibrillation with stroke risk. Other medical conditions. Physical Exam Const: COMMON NORMALS: patient oriented x3 and alert GENERAL APPEARANCE: cooperative ORIENTATION/CONSCIOUSNESS: Yes awake HENMT: COMMON NORMALS: oropharynx normal OTHER: NGT is being removed on her request. Neck/C-Spine: COMMON NORMALS: no JVD Resp: COMMON NORMALS: normal respiratory effort and clear to auscultation bilaterally AUSCULTATION: clear to auscultation bilaterally Cardio: COMMON NORMALS: no JVD, regular rhythm, S1 normal heart sound present, S2 normal heart sound present and No murmurs present (Cardio) RHYTHM: regular rhythm HEART SOUNDS: S1 normal heart sound present and S2 normal heart sound present GI: COMMON NORMALS: Soft to palpation INSPECTION: Yes abdominal distension PALPATION: Yes Soft to palpation OTHER: Mildly tender Extremity: COMMON NORMALS: no joint enlargement and no pedal edema Neuro: COMMON NORMALS: patient oriented x3 and moves all extremities SENSORIUM/ORIENTATION: Yes alert Discharge Data Studies Completed and Pending Completed Studies During Hospitalization Category Date Time Status CT abdomen pelvis w con* [id number] Stat Cat Scan 01/28/24 12:19 Completed XR abdomen 1V* [id number] Stat Exams 01/28/24 11:11 Completed XR chest 1V portable [id number] Stat Exams 01/28/24 23:35 Completed Radiology Impressions Abdomen X-Ray 01/28/24 11:11 IMPRESSION: 1. Small bowel distension of uncertain etiology. You may wish to obtain a CT for further evaluation. 2. Constipation Chest X-Ray 01/28/24 23:35 IMPRESSION: 1. Tip of NG tube projects over abdominal midline in the region of the distal stomach/gastro duodenal junction. 2. 4 mm nodule or lymph node at the left lateral lung base, new from 2018; follow-up is recommended based on patient's clinical risk level. CT There is free intraperitoneal air. Impression new. Intraperitoneal free air. Fleischner Society Guidelines for Incidental Pulmonary Nodules Detected on CT: For patients at low risk (minimal or absent history of smoking and of other known risk factors), no routine follow-up is indicated. For patients at high risk (history of smoking or of other known risk factors), consider optional CT Chest at 12 months. (Reference: Bernardo) REFERENCES: Bernardo Rabago et al. Guidelines for Management of Incidental Pulmonary Nodules Detected on CT Images: From the Fleischner Society 2017. Radiology. 2017;284(1):228-243. Laboratory Results WBC 8.76 10^3/uL (3.29-11.43) 01/30/24 07:59 Corrected WBC Cancelled 01/30/24 05:20 RBC 5.13 10^6/uL (3.85-5.65) 01/30/24 07:59 Hgb 14.80 g/dL (11.27-16.99) 01/30/24 07:59 Hct 44.7 % (36-47) 01/30/24 07:59 MCV 87.1 fl (85-98) 01/30/24 07:59 MCH 28.8 pg (27-33) 01/30/24 07:59 MCHC 33.1 g/dL (30-55) 01/30/24 07:59 RDW 12.3 % (12.1-15.1) 01/30/24 07:59 Plt Count 181 10^3/cmm (157-399) D 01/30/24 07:59 MPV 11.6 fL (7.4-10.4) H 01/30/24 07:59 Gran % Cancelled 01/30/24 05:20 Neut % (Auto) 78.0 % 01/30/24 07:59 Lymph % (Auto) 16.1 % 01/30/24 07:59 [place] % (Auto) 5.0 % 01/30/24 07:59 Eos % (Auto) 0.3 % 01/30/24 07:59 Baso % (Auto) 0.5 % 01/30/24 07:59 Neut # (Auto) 6.83 10^3/uL (1.8-7.7) 01/30/24 07:59 Lymph # (Auto) 1.4 10^3/uL (0.8-4.8) 01/30/24 07:59 [place] # (Auto) 0.4 10^3/uL (0.2-0.9) 01/30/24 07:59 Eos # (Auto) 0.0 10^3/uL (0.0-0.8) 01/30/24 07:59 Baso # (Auto) 0.0 10^3/uL (0.0-0.1) 01/30/24 07:59 Absolute Gran (auto) Cancelled 01/30/24 05:20 Nucleated RBC % (auto) 0 % 01/30/24 07:59 Nucleated RBCs # 0.0 /100WBC 01/30/24 07:59 Sodium 137 mmol/L (136-145) 01/30/24 07:59 Potassium 3.7 mmol/L (3.5-5.1) 01/30/24 07:59 Chloride 96 mmol/L (98-107) L 01/30/24 07:59 Carbon Dioxide 26 mmol/L (22-29) 01/30/24 07:59 Anion Gap 18.7 (5-19) 01/30/24 07:59 BUN 13 mg/dL (6-20) 01/30/24 07:59 Creatinine 0.7 mg/dL (0.5-0.9) 01/30/24 07:59 GFR Calculation 85.9 mL/min (90-130) L 01/30/24 07:59 Glucose 84 mg/dL (65-115) 01/30/24 07:59 POC Glucose 95 mg/dL (70-110) 01/30/24 04:45 Calculated Osmolality 283 mOsm/kg (285-295) L 01/30/24 07:59 Lactic Acid 1.2 mmol/L (0.5-2.2) 01/28/24 12:20 Calcium 9.6 mg/dL (8.5-10.5) 01/30/24 07:59 Magnesium 2.1 mg/dL (1.7-2.3) 01/29/24 04:35 Total Bilirubin 0.5 mg/dL (0.15-1.2) 01/30/24 07:59 AST 101 U/L (0-32) H 01/30/24 07:59 ALT 115 U/L (0-33) H 01/30/24 07:59 Alkaline Phosphatase 212 U/L (35-105) H 01/30/24 07:59 Total Protein 7.5 g/dL (6.6-8.7) 01/30/24 07:59 Albumin 4.2 g/dL (3.5-5.2) 01/30/24 07:59 Globulin 3.3 g/dL (1.3-4.6) 01/30/24 07:59 Lipase 15 U/L (13-60) 01/28/24 12:20 Urine Color Yellow (Yellow) 01/28/24 11:50 Urine Appearance Clear (CLEAR) 01/28/24 11:50 Urine pH 8 (5-7) H 01/28/24 11:50 Ur Specific [place] 1.015 (1.005-1.030) 01/28/24 11:50 Urine Protein 2+ (Negative) H 01/28/24 11:50 Urine Glucose (UA) Norm (Normal) 01/28/24 11:50 Urine Ketones Negative (Negative) 01/28/24 11:50 Urine Blood Neg (Negative) 01/28/24 11:50 Urine Nitrate Negative (Negative) 01/28/24 11:50 Urine Bilirubin Neg (Negative) 01/28/24 11:50 Prot Sulfosalicylic Acd Positive (Negative) 01/28/24 11:50 Urine Urobilinogen Norm mg/dL (Negative) 01/28/24 11:50 Ur Leukocyte Esterase Negative (Negative) 01/28/24 11:50 Urine RBC 0-4 /hpf (0-2) H 01/28/24 11:50 Urine WBC 0-4 /hpf (0-5) H 01/28/24 11:50 Ur Squamous Epith Cells 0-4 /hpf (0-5) H 01/28/24 11:50 Amorphous Sediment Not Reportable 01/28/24 11:50 Urine Bacteria Trace /hpf (NONE) 01/28/24 11:50 Hepatitis A IgM Ab Non-reactive (Nonreactive) 01/29/24 04:35 Hep Bs Antigen Non-reactive (Nonreactive) 01/29/24 04:35 Hep B Core IgM Ab Non-reactive (Nonreactive) 01/29/24 04:35 Hepatitis C Antibody Non-reactive (Nonreactive) 01/29/24 04:35 Vitals Last Vital Signs Temp 97.8 F 01/30/24 12:00 Pulse 96 01/30/24 14:00 Resp 16 01/30/24 14:00 BP 169/99 01/30/24 12:00 Pulse Ox 97 01/30/24 14:00 O2 Del Method Room Air 01/30/24 14:00 O2 Flow Rate 3 01/30/24 08:00 Discharge Plan Discharge Patient Disposition: Left Against Medical Advice Condition: Fair Prescriptions: No Action cyclobenzaprine 10 mg Tablet 10 mg PO TID bupropion HCl 150 mg Tablet Sustained-Release 12 Hr 150 mg PO BID Senna Lax 8.6 mg Tablet 8.6 mg PO DAILY PRN (Reason: Constipation) carvedilol 6.25 mg Tablet 6.25 mg PO BID Rx Instructions: must administer with a meal/food gabapentin 600 mg Tablet 600 mg PO TID citalopram 40 mg Tablet 40 mg PO DAILY omeprazole 40 mg Capsule,Delayed Release(Dr/Ec) 40 mg PO DAILY Aspir-81 81 mg Tablet,Delayed Release (Dr/Ec) 81 mg PO DAILY Nitrostat 0.4 mg Tablet, Sublingual 0.4 mg SUBLINGUAL Q5M PRN (Reason: Chest Pain) Rx Instructions: do not exceed 3 doses per episode montelukast 10 mg Tablet 10 mg PO QPM zolpidem 5 mg Tablet 5 mg PO BEDTIME albuterol sulfate 90 mcg/actuation Hfa Aerosol Inhaler 2 puff INHALATION QID PRN (Reason: Shortness Of Breath Or Wheezing) Vitamin D3 25 mcg (1,000 unit) Tablet 25 mcg PO DAILY oxycodone 10 mg Tablet 10 mg PO Q6H PRN (Reason: Pain) Women's 50 Plus Multivitamin 400 mcg-500 mg calcium-20 mcg Tablet 1 tab PO DAILY Breztri Aerosphere 160-9-4.8 mcg/actuation Hfa Aerosol Inhaler 2 inh INHALATION BID Patient Instructions: Pain Management Discharge Attestations Time Spent in Discharge Care*: greater than 30 min Quality Metrics Clinical Quality Measures [ No reported AMI, CVA or VTE this stay] Coding Level of Care Code 36777 Total time (in minutes) for Discharge: 50 Diagnoses Partial small bowel obstruction K56.600 Therapeutic opioid-induced constipation (OIC) K59.03; T40.2X5A
== END 2024-01-30 16:15 | disposition left against medical advice (07) | DRG 390 ==
LOC: ER 15:29 → MEDSURG 16:40
PROVIDERS: Admitting Provider Internal Medicine; Emergency Provider Emergency Medicine; Visit Provider Internal Medicine
DX: K56.600 Partial intestinal obstruction, unspecified as to cause (principal); Z53.29 Procedure and treatment not carried out because of patient's decision for other reasons; K59.03 Drug induced constipation; T40.2X5A Adverse effect of other opioids, initial encounter; Z90.49 Acquired absence of other specified parts of digestive tract; G89.29 Other chronic pain; M54.2 Cervicalgia; I48.0 Paroxysmal atrial fibrillation; J44.9 Chronic obstructive pulmonary disease, unspecified; I25.10 Atherosclerotic heart disease of native coronary artery without angina pectoris; Z95.5 Presence of coronary angioplasty implant and graft; Z87.891 Personal history of nicotine dependence; R09.02 Hypoxemia; I10 Essential (primary) hypertension; R74.01 Elevation of levels of liver transaminase levels
CPT/HCPCS: 36415; 36416; 71045; 74018; 74177; 80053; 80074; 81001; 82962; 83605; 83690; 83735; 85025; 94640; 96360; 96372; 99285; C9113; J0360; J1170; J1644; J1885; J2212; J2405; J7030; J7040; Q9967